=== PATIENT | female | born 1955 | race Caucasian/White ===

== ENCOUNTER → 2016-05-08 | Outpatient (CLI) | payer BC | END | disposition home or self-care (01) | LOC: LAB 07:14 | DX: R73.9 Hyperglycemia, unspecified (principal); M25.551 Pain in right hip ==

== ENCOUNTER → 2017-08-25 | Outpatient (CLI) | payer OTHER ==
[2017-08-25 14:11] LABS: CREATININE 0.69 mg/dL (0.55-1.02)
== END | disposition home or self-care (01) ==
LOC: CT 08-20 11:00 → LAB 13:32 → CT 14:00
PROVIDERS: Radiology Diagnostic Radiology
DX: K57.30 Diverticulosis of large intestine without perforation or abscess without bleeding (principal); K63.9 Disease of intestine, unspecified

== ENCOUNTER 2019-03-09 12:09 | Inpatient (IN) | payer OTHER ==
[~2019-03-09] VITALS: Ht 160 cm; Wt 73.0 kg
--- NOTE | ~2019-03-09 | PR ---
[place], [place] PROGRESS NOTE NAME: SUELLEN SANDOVAL UNIT #: [id number] ROOM: [facility] DOCTOR: ISMAEL LÓPEZ MD BIRTHDATE: [birth year] DOS: 03/11/2019 SUBJECTIVE: The patient is doing about the same, continues to have spike of fever during the night, she is up on the libertarian chair this morning when I saw her. She denied having any new complaints. She hallucinated in spite fever during the night. OBJECTIVE: VITAL SIGNS: Blood pressure is 105/56, pulse of 91, respirations 16, temperature 99.3 with T-max of 102.1 at midnight. LUNGS: Diminished breath sounds. HEART: Regular. ABDOMEN: Obese. EXTREMITIES: Without any edema. ASSESSMENT AND PLAN: 1. Sepsis with hypotension, hypoxemia and gram-positive cocci in the blood, on IV vancomycin and meropenem. 2. Possibility of abscess in the piriformis and iliopsoas muscle. I did try to appreciate ID input. Did try to transfer the patient first to [facility], there did not have any beds in either of their facilities and then I try to transfer to [facility]. They not have any beds either. They at least put the patient on a list. This morning I am hearing her insurance will not cover any [facility] and she will have to go to [facility]. We will try to contact [facility] again. 3. Iron deficiency anemia, infusions have been ordered. 4. Recent back surgery, laminectomy of L3, L4 and L5 and I also did speak to Dr. De La Torre her surgeon twice yesterday trying to see whether he would have any suggestions. He just wanted me to transfer the patient to medical floor. ISMAEL LÓPEZ MD CM:PNTRANS 1 9 ISMAEL LÓPEZ MD 03/21/1936 interface
--- NOTE | ~2019-03-09 | CON ---
[place], [place] REPORT OF CONSULTATION NAME: SUELLEN SANDOVAL UNIT #: [id number] ROOM: [facility] DOCTOR: ABRAN HUITRON MD BIRTHDATE: [birth year] DOS: 03/11/2019 ATTENDING: Dr. Sutton. CONSULTING: Haris Huitron. WHAT: Fever, hip pain. HOW: Insidious. WHEN: Over the last week. WHERE: At home. HISTORY OF PRESENT ILLNESS: This is a 63-year-old female with major lumbar surgery around 01/25/2019 in [place], [place]. She had a multilevel lumbar fusion. She did well and graduated from her rehab facility in early 02/2019. She was at home thereafter and just 5-7 days ago developed difficulty with ambulation as well as low grade fever. The patient has not had significant problems with her wound from the lumbar spine surgery. She has been admitted here in [place] to the ICU on Thursday03/09/2019. Initial vital signs Thursday evening did show temperature to 102.8 degrees Fahrenheit. CAT scan was performed yesterday, which showed a possible abscess in the iliopsoas. MEDICATIONS: Cyclobenzaprine, oxycodone, Zyrtec, vitamin D3, stool softener, Xanax. The patient was specifically queried about anticoagulants and states that she drinks green tea but has not been on any other anticoagulant. ALLERGIES: SOME TYPE OF RADIOLOGIC CONTRAST MATERIAL - IOVERSOL, ACETAMINOPHEN, CODEINE. PAST MEDICAL HISTORY: Noncontributory. SOCIAL HISTORY: The patient lives with her and otherwise noncontributory. SURGICAL HISTORY: Positive for the lumbar spine surgery but otherwise not felt to be contributing to this problem. FAMILY HISTORY: No history of hemophilia or other bleeding or clotting disorders. REVIEW OF SYSTEMS: A 10-point review of systems is negative from an orthopedic standpoint. PHYSICAL EXAMINATION: VITAL SIGNS: T-max over the last 24 hours 102.2 degrees Fahrenheit yesterday afternoon at 4:00 p.m. Otherwise, her vital signs have been stable with mild tachycardia. ABDOMEN/TRUNK: The patient does have right flank tenderness compared to the [place], [place] REPORT OF CONSULTATION NAME: SUELLEN SANDOVAL UNIT #: [id number] ROOM: [facility] DOCTOR: ELANA MARES,ABRAN BIRTHDATE: [birth year] left flank tenderness. She has difficulty with full extension of the hip when her bed is lowered to a full horizontal position. She is able to flex the hip but with pain. Hip range of motion does cause pain in the groin region. Neurovascular status is intact. Abdomen is soft and nontender. Inspection of lower spine: The wound from her prior back surgery was inspected and shows no evidence of wound breakdown, erythema, swelling or drainage. LABORATORY DATA: Show white count has dropped to 6500 with normal platelet count. Hemoglobin is low at 7.8 and hematocrit 25.9, which is a drop. Neutrophil percentage is high at 83%. IMAGING: CT scan was reviewed and shows iliopsoas on the right is approximately 3-4 times larger than the left iliopsoas suggestive of either hematoma or abscess. IMPRESSION: I recommend the patient have consideration of either General Surgery consultation or interventional radiologist consultation for placement of percutaneous drain or exploration via General Surgery. This patient's problem is in the retroperitoneum and is beyond the scope of our practice in [place] in the orthopedic clinic/service. Consideration of transfer to a larger facility may also be reasonable. If she is transferred, I will consider sending her back to [place], where she had the spine surgery as this may be a postoperative complication of some sort. ABRAN HUITRON MD CM:CONSTR:REPORT OF CONSULTATION 0909 03/11/19 1005 interface
--- NOTE | ~2019-03-09 | CON ---
[place], [place] REPORT OF CONSULTATION [id number] UNIT #: [id number] ROOM: [facility] DOCTOR: DEMETRI DEJESUS MD BIRTHDATE: [birth year] DOS: 03/11/2019 PULMONARY CONSULTATION, EVALUATION, AND MANAGEMENT REASON FOR CONSULTATION: Assess the patient for current shortness of breath and hypoxia. HISTORY OF PRESENT ILLNESS: This is a 63-year-old white female patient who has been admitted to the hospital under care of the hospitalist services on the date of 03/06/2019. The patient stated that she had developed pain, which has been described in the groin and the lateral portion of the abdomen on the right side. The pain has been noted gradually worsening. She was also noticed severe general weakness and fatigue resulting in assessment in the Emergency Room. The patient underwent several testing in the Emergency Room including x-ray of the hip, CT scan of abdomen and pelvis, and CT scan of the head. She has been now reported with collection in the retroperitoneal area where there is abnormal bleeding, collection of any infection such as pus or fluid was suspected. She has been admitted to the Intensive Care Unit for further medical management. Blood culture, which was taken in the Emergency Room has been noted gram-positive cocci in pairs and clusters. The patient has been currently getting broad spectrum intravenous antibiotic including vancomycin. The patient's pain has been noted better this morning. She has been using oxygen supplementation intermittently and also noted with nonproductive cough, which has been noted severe at times, resulting in pain in the chest and abdomen because of nonproductive cough. REVIEW OF SYSTEMS: CONSTITUTIONAL SYMPTOMS: Fatigue and tiredness noted without any symptoms of fever or chills. EYES: Denies any burning, redness, or tenderness. EARS, NOSE, THROAT SYMPTOMS: No sore throat, hoarseness, otalgia, postnasal drainage, or epistaxis. CARDIOVASCULAR: Denies angina pain, edema, and pain of the lower extremities. GASTROINTESTINAL SYMPTOMS: Denies dysphagia, nausea, vomiting, diarrhea, and abdominal pain at the present time. The pain in the back and the groin was noted better. GENITOURINARY SYMPTOMS: No dysuria, suprapubic pain, or hematuria. MUSCULOSKELETAL: No acute joint pain, redness, or tenderness. SKIN: Reported no lesions or rashes. CENTRAL NERVOUS SYSTEM: The patient denies dizziness, headache, diplopia, or syncopal episodes. Remaining systems were reviewed with the patient, they were noted all negative. PAST MEDICAL HISTORY: Noted history of longstanding bronchial asthma treated with Advair and short-acting bronchodilators. PAST SURGICAL HISTORY: Noted with lower back surgery in the past several years ago. [place], [place] REPORT OF CONSULTATION NAME: SUELLEN SANDOVAL UNIT #: [id number] ROOM: [facility] DOCTOR: DEMETRI DEJESUS MD BIRTHDATE: [birth year] SOCIAL HISTORY: The patient is and lives at home, noted nonsmoker lifetime. No history of alcohol use or any illicit drug use stated. FAMILY HISTORY: Essentially unknown. CURRENT MEDICATIONS: Administered was noted as DuoNeb, D5 half normal saline, IV meropenem, and IV vancomycin. The patient was given Levophed yesterday, which has been titrated off for this patient as improvement in the hypertension noted. DRUG ALLERGIES: ALLERGIES TO THE IVP DYE AND CODEINE PHOSPHATE. PHYSICAL EXAMINATION: GENERAL: This is a 63-year-old female patient who has been currently noted to be awake and alert, without any acute distress this morning. Comfortably resting on the bed. VITAL SIGNS: For the patient, which were recorded on current admission with height of 5 feet 3 inches, weight 161 pounds, BMI 28.5. The patient was noted temperature of 102 degrees Fahrenheit, respiratory rate was noted 33 yesterday, currently noted 16 this morning. Heart rate ranged between 91-107, mild sinus tachycardia, blood pressure 119/68-124/53 recorded. Previous blood pressure yesterday on admission, the lowest blood pressure was 76/45 on admission. HEENT: Head is atraumatic. Eyes: nonicterus. NECK: Supple. CARDIOVASCULAR: S1, S2 audible. LUNGS: Noted clear of any wheezing or crackles. ABDOMEN: Noted soft, moderate obesity. Bowel sounds present without any tenderness anteriorly. EXTREMITIES: Without edema, clubbing, or cyanosis. MUSCULOSKELETAL: Without acute deformities. CENTRAL NERVOUS SYSTEM: Grossly intact. LABORATORY DATA: Intake was noted 3.790 liters, output was 5074 mL, negative 1914 mL recorded. Pulse oxygen saturation is normal on room air, later on 50% oxygen 99%. This morning on 2 liters nasal cannula 97% saturation. Reviewed on admission, the CBC that was done yesterday as WBC count 9.2, hemoglobin 8.3, platelet count was normal. PT/PTT was done yesterday is normal. Lactic acid yesterday was 0.9. The CMP, normal BUN and creatinine, sodium 127, potassium 3.1. LFTs, albumin 2.7, otherwise normal LFTs. CBC that was done on 03/11/2019, hemoglobin 7.8, hematocrit 25.9, and platelet count normal. Blood culture gram-positive cocci in cluster noted from admission in 3/4 bottles. Blood culture, which were taken on 03/10/2019 noted gram-positive cocci in pairs and clusters. The review of the radiology data. The chest x-ray that was done on admission, 1 view was reviewed, shows mild widening of the mediastinum with basilar areas of atelectasis, otherwise negative study. CT scan of the head on 03/09/2019 reported as no acute intracranial abnormalities. Right hip x-ray was also done reported by radiologist, no acute process. CT scan of cervical spine does not show any displacement or any fractures. CT scan of the abdomen and pelvis that was done without contrast on 03/09/2019 with findings by the [place], [place] REPORT OF CONSULTATION NAME: SUELLEN SANDOVAL UNIT #: [id number] ROOM: [facility] DOCTOR: TILA DUBOIS [facility] BIRTHDATE: [birth year] radiologist as artifact for extensive thoracolumbar fusion was reported. Mild asymmetrical enlargement right iliac muscle compared to the left side, stranding of the fat also reported in the right common femoral and external iliac in the vessels. Finding may be related to small infiltrate, retroperitoneal hematoma, short-term followup was advised. The CTA of the chest was done yesterday which were repeated and that has excluded any evidence of pulmonary embolism as reviewed, the patient was given a prep prior to that. The CT scan of the abdomen was also done at that time was noted with finding of 6 x 4.2 x 2.8 cm with focal abscess formation was suggested. It could be from retroperitoneal hematoma at the suggestion. IMPRESSION: 1. The patient has been noted, most likely is the bacteremia for acute sepsis, hypertension and shortness of breath and hypoxia related to current abscess formation in the back, etiology unclear, but noted Gram-positive cocci bacteremia in pairs and clusters in multiple since admission. 2. History of bronchial asthma noted with cough possibility of bronchitis would be considered as well. 3. The patient has history of morbid obesity as well. There were no past history of tobacco use. There were no abnormal lymphadenopathy noted. A small pleural fluid noted on CT scan of the chest most likely would be related to possibly intravenous fluid administration, resulting in the fluid overload. PLAN OF MANAGEMENT: Continue with the aggressive coverage with the antibiotics, oxygen supplementation, maintain pulse ox 92% or greater, avoid excessive fluid administration. Intravenous Lasix will be given in case of worsening of the respiratory status. Bronchodilators to be continued. The patient has been currently considered for transfer to [facility] in [place], [place] for further assessment intervention of current problem. CT-guided drainage should be considered for an abscess and other intervention to be done accordingly. Possibility of placement of the pigtail catheter in that area of draining abscess should be considered as well. Symptomatic management of the cough with the bronchodilator will be continued. In case of any worsening respiratory status. Additional intervention will be done to transfer to another facility. Usual care. Supportive care, plan of therapy management as well. The ultrasound of lower extremity that was ordered yesterday, has also included any deep venous thrombosis of lower extremities from yesterday. Thanks for allowing me to participate in the care of this patient. [place], [place] REPORT OF CONSULTATION NAME: SUELLEN SANDOVAL UNIT #: [id number] ROOM: [facility] DOCTOR: DEMETRI DEJESUS MD BIRTHDATE: [birth year] DEMETRI ADORNO MD CM:CONSTR:REPORT OF CONSULTATION 16 03/11/191958 interface
--- NOTE | ~2019-03-09 | EKG ---
[place], [place] ELECTROCARDIOGRAM REPORT NAME: SUELLEN SANDOVAL UNIT #: [id number] ROOM: [facility] DOCTOR: JARETH DRAFT REPORT BIRTHDATE: [birth year] [facility] Test Date: 2019-03-09 Test Time: 12:36:42 Pat Name: SUELLEN SANDOVAL Department: Room: [facility] Gender: F Chucking Lathe Operator: : 1955 Requested By: JAMIE VARGAS DNP Order Number: [id number] Reading MD: Yola Martinez Measurements Intervals [place] Rate: P: CT: QRS: QRSD: T: QT: QTc: 0 Interpretive Statements Sinus rhythm No previous ECG available for comparison Electronically Signed On 03-11-2019 7:37:09 PST by Yola Martinez CM:EKGRPT:ELECTROCARDIOGRAM REPORT [id number] JAMIE MERAZANY DRAFT REPORT JAMIE VARGAS DNP
--- NOTE | ~2019-03-09 | WRIGHTHP ---
[place], [place] PATIENT HISTORY AND PHYSICAL EXAM NAME: SUELLEN SANDOVAL [facility] #: [id number] UNIT #: [id number] ROOM: [facility] DOCTOR: ISMAEL LÓPEZ MD BIRTHDATE: [birth year] DOS: 03/09/2019 HISTORY OF PRESENT ILLNESS: This patient is 63-year-old. The patient is very well known to us. She had laminectomy performed 2 months ago and has been doing well, walking and not having any new complaints. About few days ago, she noticed increasing weakness in her legs and was unable to ambulate and she started having a fever, so she went to [facility], got admitted overnight last Thursday. Blood work and testing were all done, so they were told that there was nothing wrong and that she just was discharged to home. On Thursday, the family came to the office with a urine specimen, which was slightly positive. Bactrim was ordered. On Thursday, the patient's daughter called that the patient was starting to have a high-grade temperature of 103. She was confused and was unable to get up out of bed, so advised the patient be sent by ambulance to the Emergency Room where she was evaluated and was admitted. She this morning is slightly confused, but recognized me and did answer questions appropriately. Some of the chain of events are mixed up for the patient. Denies having any chest pains, palpitations. Does complain of severe abdominal pain. Holds on to the right lower quadrant when she coughs. PAST MEDICAL HISTORY: Significant for: 1. Again, recent back surgery status post laminectomy. 2. Generalized anxiety disorder. 3. Chronic allergic rhinitis. MEDICATIONS: She is on Zyrtec 10 mg daily p.r.n., Xanax 0.5 daily p.r.n. She also has been on cyclobenzaprine and oxycodone. SOCIAL HISTORY: Nonsmoker, does not use any alcohol. Lives at home with her boyfriend. PHYSICAL EXAMINATION: GENERAL: She is awake and alert and oriented to person. VITAL SIGNS: Graphic trend shows a pressure 103/54, pulse of 88, respirations 22, temperature 98.7. LUNGS: Diminished breath sounds. Clear. HEART: Regular. ABDOMEN: Obese, soft. Some tenderness is present in the right lower quadrant. EXTREMITIES: Without any edema. BACK: Within normal limits. The area is warm and dry. Wound is completely closed. NEUROLOGICAL: There is weakness bilaterally in the lower legs. Blood cultures were positive. Two bottles were positive, Gram-positive cocci in clusters. LABORATORY DATA: Lactic acid was normal. White cell count was normal. Urinalysis reflexed for culture, so far it is showing no bacterial growth. CT of the abdomen and pelvis shows a possibility of retroperitoneal hematoma with some infiltration in the fat planes suggestive of maybe a localized infection. ASSESSMENT AND PLAN: [place], [place] PATIENT HISTORY AND PHYSICAL EXAM NAME: SUELLEN SANDOVAL UNIT #: [id number] ROOM: [facility] DOCTOR: ISMAEL LÓPEZ MD BIRTHDATE: [birth year] 1. The patient with high-grade fever and confusion and septic with positive blood cultures and hypotension. The patient was started on Levophed during the night. IV fluids and IV antibiotics. Broad spectrum antibiotics have been added. Infectious Disease consultation is pending. 2. Polypharmacy. We will avoid Flexeril, Xanax and pain medication combination. Oxycodone has been ordered. Rest of the pain medicines, muscle relaxants and Xanax have been discontinued. 3. Possibility of a mass, right lower quadrant of the abdomen could be an abscess. We will go ahead and arrange for a WBC tagged scan. 4. Hypokalemia. Supplementation is ordered. 5. Anemia with a hemoglobin of 7.8. This is a new finding for the patient. Hemoccults will be ordered. Iron, B12, folate, ferritin also ordered. ISMAEL LÓPEZ MD CM:HISPHYS:PATIENT HISTORY AND PHYSICAL EXAMINATION 5 ISMAEL LÓPEZ MD 03/10/19854 interface
[2019-03-09 12:10] VITALS: BP 123/49
[2019-03-09 12:45] LABS: BILIRUBIN NEGATIVE (NEGATIVE); BLOOD TRACE-INTACT (NEGATIVE); CLARITY CLEAR (CLEAR); COLOR YELLOW (YELLOW); GLUCOSE NEGATIVE (NEGATIVE); KETONE NEGATIVE (NEGATIVE); LEUKO ESTERASE NEGATIVE (NEGATIVE); NITRITE NEGATIVE (NEGATIVE); SPECIFIC GRAVITY 1.015 (1.005-1.030); UROBILINOGEN 0.2 E.U./dl (0.2-1.0)
[2019-03-09 12:51] LABS: BACTERIA 2+
[2019-03-09 12:55] LABS: HEMATOCRIT 26.6 % (37.0-47.0); HEMOGLOBIN 8.3 g/dl (12.0-16.0); MEAN CELL VOLUME 81.1 fl (81.0-99.0); MEAN CORPUSCULAR HGB 25.3 pg (27.0-31.0); MEAN CORPUSCULAR HGB CONC 31.2 g/dl (33.0-37.0); MEAN PLATELET VOLUME 9.7 fl (9.6-12.3); PLATELET COUNT AUTOMATED 229 10*3/uL (130-400); RED BLOOD COUNT 3.28 10*6/uL (4.10-5.10); WHITE BLOOD COUNT 9.2 10*3/uL (4.8-10.8)
[2019-03-09 12:59] LABS: ACT PARTIAL THROMBO TIME 28.2 SECONDS (20.0-32.1)
[2019-03-09 13:05] LABS: ALBUMIN 2.7 gm/dl (3.1-4.5); ALKALINE PHOSPHATASE 119 U/L (45-117); BUN 10 mg/dl (7-24); CHLORIDE 93 mmol/L (98-107); CREATININE 0.85 mg/dL (0.55-1.02); LIPASE 75 U/L (73-393); POTASSIUM 3.1 mmol/L (3.5-5.1); SGOT/AST 28 IU/L (3-35); SODIUM 127 mmol/L (136-145); TOTAL PROTEIN 6.9 gm/dL (6.4-8.2)
[2019-03-09 13:07] LABS: BASOPHILS 1 % (0-1); PLATELET SUFFICIENCY NORMAL (NORMAL); SGPT/ALT 30 U/L (12-78); TOTAL CELLS COUNTED 100 #CELLS
[2019-03-09 13:08] LABS: TROPONIN I < 0.015 ng/ml (<0.045)
--- NOTE | 2019-03-09 13:19 | NUR ---
PT TO CT AT THIS TIME.
[2019-03-09 14:58] VITALS: BP 128/68
--- NOTE | 2019-03-09 15:10 | NUR ---
Time: 1509 A 63 year old FEMALE admitted to under services of DR. PUSHPA MARES,YELENA Mccrary Pt. arrived via bed from ER. Chief complaint: .UTI SYMPTOMS HRUBOVCAKRAJ
[2019-03-09] MEDS ORDERED: CYCLOBENZAPRINE5 M3 PO (16:43)
[2019-03-09] MEDS ORDERED: OXYCODONE HCL5 M1 PO (16:44)
[2019-03-09] MEDS ORDERED: ZYRTEC10 MG PO (16:44)
[2019-03-09] MEDS ORDERED: XANAX0.5 MG PO (16:45)
[2019-03-09] MEDS ORDERED: VITAMIN D50000 UNIT PO (16:45)
[2019-03-09] MEDS ORDERED: STOOL SOFTENER100 M3 PO (16:45)
[2019-03-09] MEDS ORDERED: INHALER (16:47)
--- NOTE | 2019-03-09 16:50 | NUR ---
C/O PAIN OF 10/10 TO BACK. IV DILAUDID GIVEN AT THIS TIME. WILL CONT TO MONITOR. CALL LIGHT IN REACH.
--- NOTE | 2019-03-09 17:09 | NUR ---
SPOKE TO DR BARROW. NEW ORDERS RECEIVED AND HE STATED HE WILL PUT THE REST OF THEM IN.
--- NOTE | 2019-03-09 17:30 | NUR ---
DR BARROW NOTIFIED PT C/O INABILITY TO URINATE. RECEIVED NEW ORDERS FOR PT TO BE STRAIGHT CATHED AND RECORD OUTPUT. PLEASE SEE ORDERS
--- NOTE | 2019-03-09 17:52 | NUR ---
MOTRIN GIVEN FOR TEMP OF 102.8
--- NOTE | 2019-03-09 19:50 | NUR ---
NOTIFIED DR. BARROW OF PATIENTS NEW BLOOD PRESSURE, 82/44. PATIENT CONTINUING TO COMPLAIN OF ABDOMINAL PAIN AND FLANK PAIN. C/O FEELING LIGHT HEADED. SEE NEW ORDERS. .
[2019-03-09 20:00] VITALS: BP 76/45; BP 82/44
[2019-03-09 21:21] VITALS: BP 82/32
--- NOTE | 2019-03-09 21:24 | NUR ---
NOTIFIED DR. TREVINO OF NEW CONSULT. NO NEW ORDERS RECEIVED. ATTEMPTED TO CALL DR. BARROW WITH PATIENT NEW BLOOD PRESSURE. NO ANSWER. WILL RETRY.
--- NOTE | 2019-03-09 21:35 | NUR ---
DR. BARROW CALLED BACK. ANOTHER BOLUS TO BE GIVEN THEN FLUIDS AT 100ML/HR. PER DR. BARROW PLACE CALVO FOR ACCURATE I&O. CALL DR. BARROW AFTER BOLUS COMPLETE IF SYSTOLIC BLOOD PRESSURE <100. WILL CONTINUE TO MONITOR.
--- NOTE | 2019-03-09 23:20 | NUR ---
NOTIFIED DR. BARROW OF PATIENT PRESSURE, 74/38. AFTER 2BOLUSS. IV FLUIDS NOW RUNNING AT 100ML/HR. 800CC OUT OF CALVO. PER DR. BARROW CONSULT DR. NGUYEN FOR FLUID MANAGMENT AND TRANSFER PATIENT TO THE ICU. AUXILIARY POWER EQUIPMENT OPERATOR NOTIFIED OF TRANSFER.
--- NOTE | 2019-03-09 23:32 | NUR ---
PATIENT TRANSFERED BACK TO THE ICU AT THIS TIME. REPORT GIVEN TO SOHAIL TELLES. DAUGHTER NOTIFIED OF TRANSFER.
--- NOTE | 2019-03-09 23:32 | NUR ---
RECEIVED PATIENT FROM FLOOR, PATIENT ALERT AND ORIENTED. BP 86/52(63). IVF RUNNING. PATIENT DENIES ANY PAIN AT THIS TIME. CALVO EMPTIED, 750ML. CONTACTED DR. BARROW, NEW ORDER TO CONSULT DR. HARDEN. NO OTHER ORDERS RECEIVED.
--- NOTE | 2019-03-09 23:57 | NUR ---
CALLED DR. NGUYEN FOR NEW CONSULT. PER HER,DR. HARDEN IS COVERING FOR HER SERVICE. NOTIFIED DR. BARROW. DR. HARDEN TO BE CONSULTED FOR FLUID MANAGEMENT.
[2019-03-10] VITALS (41 sets, daily range): BP systolic 82–154; BP diastolic 46–122
--- NOTE | 2019-03-10 00:03 | NUR ---
CONTACTED DR. HARDEN'S OFFICE FOR CONSULT. AWAITING CALL BACK.
--- NOTE | 2019-03-10 00:30 | NUR ---
RECEIVED ORDERS FROM DR. HARDEN. KEEP IVF @ 100/HR, ALBUMIN 5% 500ML, LEVOPHED.
--- NOTE | 2019-03-10 02:00 | NUR ---
CONTACTED DR. HARDEN'S OFFICE TO LET HIM KNOW WE WERE UNABLE TO GET ALBUMIN 5% AWAITING CALL BACK.
--- NOTE | 2019-03-10 02:30 | NUR ---
NOTIFIED DR. HARDEN'S OFFICE AGAIN, SINCE THERE WAS NO CALL BACK. WILL AWAIT CALL.
--- NOTE | 2019-03-10 03:05 | NUR ---
STILL NO CALL BACK FROM DR. HARDEN. ALBUMIN ORDER WILL HAVE TO BE CARRIED OUT WHEN PHARMACY ARRIVES IN THE AM.
[2019-03-10 04:55] LABS: BUN 8 mg/dl (7-24); CHLORIDE 108 mmol/L (98-107); CREATININE 0.64 mg/dL (0.55-1.02); POTASSIUM 3.2 mmol/L (3.5-5.1); SODIUM 137 mmol/L (136-145)
--- NOTE | 2019-03-10 05:00 | NUR ---
PATIENT ASKED IF SHE COULD HAVE SOMETHING FOR PAIN IN HER BACK. SHE RATES 10/10. MORPHINE GIVEN, WILL MONITOR AND REASSESS.
--- NOTE | 2019-03-10 05:00 | NUR ---
POSITIVE BLOOD CULTURES CALLED TO DR. BARROW, NEW ORDER FOR VANCO AND I/D CONSULT.
--- NOTE | 2019-03-10 05:08 | NUR ---
CONSULT CALLED TO DR. KIRKLAND, AWAITING CALL BACK.
--- NOTE | 2019-03-10 05:17 | NUR ---
DR. GAITAN RETURNED CALL, NO NEW ORDERS.
[2019-03-10 06:20] LABS: BASO % 0.2 % (0.0-1.0); EOS % 0.6 % (1.0-4.0); HEMATOCRIT 25.9 % (37.0-47.0); HEMOGLOBIN 7.8 g/dl (12.0-16.0); LYMPH # 0.5 10*3/uL (1.3-4.4); LYMPH % 7.2 % (27.0-41.0); MEAN CORPUSCULAR HGB CONC 30.1 g/dl (33.0-37.0); MEAN PLATELET VOLUME 10.9 fl (9.6-12.3); MONO # 0.5 10*3/uL (0.1-1.0); MONO % 8.3 % (3.0-9.0); NEUT # 5.5 10*3/uL (2.3-7.9); NEUT % 83.2 % (47.0-73.0); PLATELET COUNT AUTOMATED 218 10*3/uL (130-400); RED BLOOD COUNT 3.12 10*6/uL (4.10-5.10); RED CELL DISTRI WIDTH 15.2 % (0-14.5); WHITE BLOOD COUNT 6.5 10*3/uL (4.8-10.8)
--- NOTE | 2019-03-10 07:45 | NUR ---
DR. LÓPEZ HERE TO SEE PATIENT. PATIENT IS AWAKE AND ALERT. RESTLESS. TEMP 100.5. LEVOPHED GTT INFUSING AT 1 ROBERT (7.5CC/HR) VIA RAN. IV IN NARCISO OUT AND LEAKING. IV RESTARTED IN NARCISO AND NS INFUSING AT 100CC/H. CALVO INTACT AND DRAINING CLEAR YELLOW URINE. LUNGS CLEAR BILATERALLY. NO EDEMA NOTED. PULSE OX 96% ON ROOM AIR
--- NOTE | 2019-03-10 10:00 | NUR ---
MAP 72. LEVOPHED GTT TURNED OFF.
--- NOTE | 2019-03-10 10:00 | NUR ---
Internet Manager in to talk to patient. Patient states lives at home with her ex-. There are 0 steps in the home. There is a stair lift. Physician: Dr. Rehana Sutton Pharmacy: [facility] services: none Patient's level of ADLs: MINIMAL ASSIST Patient has working utilities: yes DME: walker Follow-up physician's appointment after d/c: she prefers to make her own follow up appt after discharge Does patient want to access PORTAL?: no Discharge plan discussed with patient. She lives at home with her ex-. She is independent in her ADLs and ambulates with a walker. Discussed short term SNF and home health care services and she denies any home needs at this time. When medically stable she will be discharged to home. Her ex- will provide transportation on discharge. MARCOS CHANG
--- NOTE | 2019-03-10 10:25 | NUR ---
MEDICATED WITH OXYCODONE PO ORDERED FOR COMPLAINTS OF PAIN IN BACK. RATES PAIN AN 8 ON A PAIN SCALE OF 1-10
[2019-03-10 10:27] LABS: FERRITIN 143.3 ng/mL (10.0-291.0)
--- NOTE | 2019-03-10 11:00 | NUR ---
VOICES THAT OXYCODONE WAS EFFECTIVE FOR PAIN
--- NOTE | 2019-03-10 13:56 | NUR ---
NOTIFIED DR. LÓPEZ REGARDING HARSH COUGH AND SHORTNESS OF BREATH, PULSE OX 94% ON ROOM AIR. ABG ORDERED AND DUONEBS ORDERED Q4H
[2019-03-10 14:24] LABS: ABG BASE EXCESS -1.3 mmol/L (-2.0-2.0); ABG HCO3 21.6 mmol/l (22-26); ABG O2 SATURATION 94.7 % (95-97); ARTERIAL BLOOD GAS PCO2 32.6 mmHg (35-45); ARTERIAL BLOOD GAS PH 7.443 (7.35-7.45); ARTERIAL BLOOD GAS PO2 65.3 mmHg (80-90)
--- NOTE | 2019-03-10 15:38 | NUR ---
DR. LÓPEZ NOTIFIED OF ABG RESULTS AND CONTINUED RESPIRATORY DISTRESS WITH RESPIRATIONS IN THE 30'S. ORDERS RECEIVED FOR BI-PAP 04/08; CTA CHEST AND A DR. ADORNO CONSULT
--- NOTE | 2019-03-10 16:09 | NUR ---
MEDICATED WITH 2 TYLENOL FOPR TEMP 102.2
--- NOTE | 2019-03-10 16:28 | NUR ---
Nursing screen received and chart review completed. Patient admitted with fever, confusion and positive blood cultures afater laminectomy 2 months prior. Patient reports to case management that she is independent in her ADls and will return home with family upon d/c. Patient has not current OT needs per chart review. Nola Lindsey OTr/l
--- NOTE | 2019-03-10 16:30 | NUR ---
TAKEN DOWN TO X-RAY FOR CT CHEST AND ABDOMEN
--- NOTE | 2019-03-10 18:40 | NUR ---
DR. PEACE NOTIFIED OF CT RESULTS. SHE WANTS PATIENT TO BE TRANSFERRED TO [facility]. DR. LÓPEZ CALLED AND A VOICE MESSAGE LEFT.
--- NOTE | 2019-03-10 19:50 | NUR ---
1919 OXY IR GIVEN FOR C/O'S R HIP PAIN. WILL MONITOR. 1929 UP TO BSC WITH 2 ASSISTS FOR BM LIGHT YELLOW LIQUID STOOL. REMAINS WEAK. BACK TO BED. 1946 DR. LÓPEZ RETURNED EARLIER CALL. GIVEN RESULTS OF CT ABD. TO CALL PT PHYSICIAN AT [facility] AND RETURN CALL TO ME REGARDING TRANSFER. 1949 RESTING IN BED TALKING WITH VISITORS. ORAL TEMP 98.1. IV FLUIDS CONT. TAKING DIET WELL PO. ALERT AT PRESENT. PULSE OX 98% ON RA. O2 REAPPLIED AT 2L. SCD'S INTACT BILATERAL LOWER EXTREMITIES. CALVO PATENT AND DRAINING CLEAR YELLOW URINE. 1957 RETURNED CALL. SURGEON WHO DID BACK OR WILL NOT ACCEPT PT. GIVEN [facility] TRANSFER NUMBER.
--- NOTE | 2019-03-10 20:37 | NUR ---
EARLIER PAIN MED EFFECTIVE. RESTING IN BED WITH EYES CLOSED.
--- NOTE | 2019-03-10 21:12 | NUR ---
SIGNIFICANT OTHER GONE HOME. GIVEN DIRECT NUMBER TO CALL ICU TO CHECK PT. [facility] CALLED US FOR DEMOGRAPHICS TO BE FAXED. STATES PT WILL NEED A PRE AUTHORIZATION DUE TO HER INSURANCE AND SINCE NO ONE FROM CASE MANAGEMENT IS HERE AT NIGHT, THIS CAN NOT BE DONE UNTIL MORNING.
--- NOTE | 2019-03-10 21:15 | NUR ---
LATE ENTRY 2100 DR. LÓPEZ CALLED BACK - NO BEDS AVAILABLE AT [facility] OR [facility]. GIVEN UPDATE ON PT.
--- NOTE | 2019-03-10 22:19 | NUR ---
RESTLESS AND MOVING ABOUT CONSTANTLY IN THE BED. ORIENTED TO PERSON AND PLACE. NO SPECIFIC COMPLAINTS VOICED.
--- NOTE | 2019-03-10 23:13 | NUR ---
REMAINS RESTLESS. HR ST AT 108. TEMP IS 102.6 TYMPANIC. TEMP IS 102.1 RECTALLY. HANDS ARE VERY COLD. MEDICATED WITH TYLENOL 2 PO FOR ELEVATED TEMP AND OXY IR FOR C/O'S PAIN HIP. PLACED ON BIPAP AT 50%. EAR PULSE OX PLACED. PULSE OX IS 100%. WILL CONT TO MONITOR.
[2019-03-11] VITALS: BP 124/76
--- NOTE | 2019-03-11 00:06 | NUR ---
LESS RESTLESSNESS NOTED. BIPAP INTACT. PULSE OX 98%. CONFUSED NOW. THINKS IT IS HALLOWEEN.
--- NOTE | 2019-03-11 00:44 | NUR ---
TEMP IS NOW 100.6 TYMPANIC. WILL CONT TO MONITOR.
--- NOTE | 2019-03-11 02:47 | NUR ---
BIPAP REMOVED. UP TO BSC. NO BM NOTED. TEMP IS NOW 99.3. COMPLETE BATH GIVEN AND LINENS CHANGED. BACK TO BED. CALL LIGHT IN REACH. PLACED BACK ON IL AT 3L. BED ALARM INTACT.
--- NOTE | 2019-03-11 03:18 | NUR ---
OXY IR GIVEN FOR C/O'S R HIP AND R ABDOMEN. WILL MONITOR.
[2019-03-11 04:00] VITALS: BP 105/56
--- NOTE | 2019-03-11 05:33 | NUR ---
NUCLEAR MED TECH HERE TO START TAGGED WBC TEST ON PT. MADE AWARE THAT PT IS TO BE TRANSFERRED OUT TO ANOTHER FACILITY TODAY. DR LÓPEZ CALLED REGARDING THIS TEST DUE TO THE FACT THAT IT WOULD NOT BE FINISHED UNTIL 2PM TODAY. UNSTRUCTED TO CANCEL TEST.
--- NOTE | 2019-03-11 06:08 | NUR ---
PT APPEARED MUCH MORE CONFUSED AFTER PAIN MED. HALLUCINATING. SEEING "KNIVES IN THE WALL." HR ELEVATED NOW AT 106. TEMP GOING UP AGAIN. UP TO 100.6. TYLENOL 2 PO GIVEN FOR THIS. REMAINS RESTLESS. HAS ONLY SLEPT FOR VERY SMALL PERIODS OF TIME. O2 INTACT AT 3L. WILL NOT LEAVE BIPAP ON. IV FLUIDS CONT. CALVO PATENT AND PT CONT TO DIURESE LARGE AMOUNTS OF URINE. DRY COUGH CONT. CONDITION GUARDED.
--- NOTE | 2019-03-11 07:39 | NUR ---
Message left for Christianne Salomon regarding possible transfer to [facility]. Checking to see if [facility] is in network and if not what facility would be as [facility] is an [place] Medicaid product. Awaiting return call.
--- NOTE | 2019-03-11 07:40 | NUR ---
DR. LÓPEZ HERE TO SEE PATIENT. WISHES TO SEND PATIENT TO [facility] OR [place]. TEMP98.4. BP 123/74. PULSE OX 99% ON ROOM AIR.
[2019-03-11 08:00] VITALS: BP 123/74
--- NOTE | 2019-03-11 08:06 | NUR ---
Spoke to Christianne Salomon. Patient has to stay within the state of [place]. [place] is out of network. rent and miscellaneous remittance clerk notified.
--- NOTE | 2019-03-11 08:22 | NUR ---
Spoke to bed coordinator at [facility]. She does not have any transfers on her list. Have physician call and 1st available bed will be called. Dr. Sutton notified.
--- NOTE | 2019-03-11 08:41 | NUR ---
[facility] OFFICE NOTIFIED OF CONSULT.
--- NOTE | 2019-03-11 10:20 | NUR ---
TRANSFERRED TO [facility] VIA [facility]. AT BEDSIDE. REPORT CALLED TO NURSE.
--- NOTE | 2019-03-14 18:24 | NUR ---
PHYSICAL THERAPY Physical therapy screen received. Patient discharged on 03/11/19. Thank you. Minnie Garcias,PT,DPT
== END 2019-03-11 10:20 | disposition short-term general hospital (02) | DRG 720 ==
LOC: ED 12:09 → ICCU 13:35 → EDHOLD 13:35 → 4E 14:02 → ICCU 23:40
PROVIDERS: Internal Medicine; Internal Medicine Critical Care Medicine; Nurse Practitioner Family; ADMIT Internal Medicine
PROC: 5A09357 Assistance with Respiratory Ventilation, Less than 24 Consecutive Hours, Continuous Positive Airway Pressure (ICD-10-PCS; principal; 2019-03-11)
DX: A41.89 Other specified sepsis (principal); G93.41 Metabolic encephalopathy; R26.2 Difficulty in walking, not elsewhere classified; L02.31 Cutaneous abscess of buttock; L02.419 Cutaneous abscess of limb, unspecified; D50.9 Iron deficiency anemia, unspecified; F41.1 Generalized anxiety disorder; I10 Essential (primary) hypertension; E66.01 Morbid (severe) obesity due to excess calories; E87.6 Hypokalemia; N30.00 Acute cystitis without hematuria; R10.9 Unspecified abdominal pain; E87.1 Hypo-osmolality and hyponatremia; B95.2 Enterococcus as the cause of diseases classified elsewhere; J45.909 Unspecified asthma, uncomplicated; R09.02 Hypoxemia; Z88.8 Allergy status to other drugs, medicaments and biological substances; Z88.5 Allergy status to narcotic agent; Z88.6 Allergy status to analgesic agent; Z91.041 Radiographic dye allergy status; Z68.28 Body mass index [BMI] 28.0-28.9, adult

== ENCOUNTER → 2019-06-03 | Outpatient (CLI) | payer MEDICARE ==
[~2019-06-03] MED LIST: CYCLOBENZAPRINE5 M3 PO; INHALER; OXYCODONE HCL5 M1 PO; STOOL SOFTENER100 M3 PO; VITAMIN D50000 UNIT PO; XANAX0.5 MG PO; ZYRTEC10 MG PO
== END | disposition home or self-care (01) ==
LOC: RAD 15:16
DX: R07.9 Chest pain, unspecified (principal)

== ENCOUNTER → 2020-03-08 | Outpatient (CLI) | payer MEDICARE ==
[2020-03-08 10:41] LABS: BASO % 0.4 % (0.0-1.0); EOS # 0.1 10*3/uL (0.0-0.4); EOS % 1.3 % (1.0-4.0); HEMATOCRIT 39.2 % (37.0-47.0); LYMPH # 1.9 10*3/uL (1.3-4.4); MEAN CELL VOLUME 86.9 fl (81.0-99.0); MEAN CORPUSCULAR HGB 26.8 pg (27.0-31.0); MEAN CORPUSCULAR HGB CONC 30.9 g/dl (33.0-37.0); MEAN PLATELET VOLUME 9.5 fl (9.6-12.3); MONO # 0.4 10*3/uL (0.1-1.0); MONO % 7.9 % (3.0-9.0); NEUT # 2.4 10*3/uL (2.3-7.9); PLATELET COUNT AUTOMATED 294 10*3/uL (130-400); RED BLOOD COUNT 4.51 10*6/uL (4.10-5.10); RED CELL DISTRI WIDTH 14.6 % (0-14.5); WHITE BLOOD COUNT 4.7 10*3/uL (4.8-10.8)
[2020-03-08 11:12] LABS: ALBUMIN 3.8 gm/dl (3.1-4.5); ALKALINE PHOSPHATASE 99 U/L (45-117); BUN 11 mg/dl (7-24); CHLORIDE 106 mmol/L (98-107); CHOLESTEROL 283 mg/dL (<200); CREATININE 0.82 mg/dL (0.55-1.02); FREE T4 0.73 ng/dl (0.76-1.46); HDL CHOLESTEROL 50 mg/dl (40-60); LDL CHOLESTEROL 158 mg/dL (9-159); POTASSIUM 4.1 mmol/L (3.5-5.1); SGOT/AST 19 IU/L (3-35); SGPT/ALT 26 U/L (12-78); SODIUM 142 mmol/L (136-145); TOTAL PROTEIN 7.5 gm/dL (6.4-8.2); TRIGLYCERIDES 373 mg/dl (<150); VLDL CHOLESTEROL 75 mg/dL (6-40)
[2020-03-08 11:19] LABS: VITAMIN D, 25-HYDROXY 22.6 ng/mL (30-100)
== END | disposition home or self-care (01) ==
LOC: LAB 09:59
PROVIDERS: ATTEND Internal Medicine
DX: M48.062 Spinal stenosis, lumbar region with neurogenic claudication (principal); E78.2 Mixed hyperlipidemia; R79.82 Elevated C-reactive protein (CRP); R74.8 Abnormal levels of other serum enzymes; R79.89 Other specified abnormal findings of blood chemistry; R53.81 Other malaise; E55.9 Vitamin D deficiency, unspecified; Z79.891 Long term (current) use of opiate analgesic

== ENCOUNTER → 2020-07-09 | Outpatient (CLI) | payer MEDICARE ==
[2020-07-09 14:38] LABS: BASO % 0.4 % (0.0-1.0); EOS # 0.1 10*3/uL (0.0-0.4); EOS % 1.1 % (1.0-4.0); HEMATOCRIT 36.5 % (37.0-47.0); LYMPH % 27.4 % (27.0-41.0); MEAN CELL VOLUME 89.9 fl (81.0-99.0); MEAN CORPUSCULAR HGB 27.6 pg (27.0-31.0); MEAN CORPUSCULAR HGB CONC 30.7 g/dl (33.0-37.0); MEAN PLATELET VOLUME 9.8 fl (9.6-12.3); MONO # 0.5 10*3/uL (0.1-1.0); NEUT # 4.6 10*3/uL (2.3-7.9); NEUT % 63.8 % (47.0-73.0); PLATELET COUNT AUTOMATED 293 10*3/uL (130-400); RED BLOOD COUNT 4.06 10*6/uL (4.10-5.10); RED CELL DISTRI WIDTH 14.6 % (0-14.5); WHITE BLOOD COUNT 7.2 10*3/uL (4.8-10.8)
== END | disposition home or self-care (01) ==
LOC: LAB 14:17
PROVIDERS: ATTEND Internal Medicine
DX: M54.5 Low back pain (principal); I10 Essential (primary) hypertension; T85.79XA Infection and inflammatory reaction due to other internal prosthetic devices, implants and grafts, initial encounter

== ENCOUNTER → 2020-09-19 | Outpatient (CLI) | payer MEDICARE | END | disposition home or self-care (01) | LOC: US 10:00 | PROVIDERS: ATTEND Internal Medicine | DX: I65.23 Occlusion and stenosis of bilateral carotid arteries (principal) ==

== ENCOUNTER → 2021-06-17 | Outpatient (CLI) | payer MEDICARE | END | disposition home or self-care (01) | LOC: RAD 09:00 | PROVIDERS: ATTEND Internal Medicine | DX: M85.88 Other specified disorders of bone density and structure, other site (principal); M81.0 Age-related osteoporosis without current pathological fracture ==

== ENCOUNTER → 2021-06-26 | Outpatient (CLI) | payer MEDICARE | LOC: MAMMO 11:27 | PROVIDERS: ATTEND Internal Medicine | DX: Z12.31 Encounter for screening mammogram for malignant neoplasm of breast (principal) ==

== ENCOUNTER → 2021-08-27 | Outpatient (CLI) | payer MEDICARE ==
[2021-08-27 12:53] LABS: BASO % 0.4 % (0.0-1.0); EOS # 0.1 10*3/uL (0.0-0.4); EOS % 1.1 % (1.0-4.0); HEMATOCRIT 37.5 % (37.0-47.0); LYMPH # 1.9 10*3/uL (1.3-4.4); LYMPH % 40.3 % (27.0-41.0); MEAN CELL VOLUME 87.6 fl (81.0-99.0); MEAN CORPUSCULAR HGB 28.5 pg (27.0-31.0); MEAN CORPUSCULAR HGB CONC 32.5 g/dl (33.0-37.0); MEAN PLATELET VOLUME 9.7 fl (9.6-12.3); MONO # 0.4 10*3/uL (0.1-1.0); MONO % 8.7 % (3.0-9.0); NEUT # 2.3 10*3/uL (2.3-7.9); NEUT % 49.3 % (47.0-73.0); PLATELET COUNT AUTOMATED 290 10*3/uL (130-400); RED BLOOD COUNT 4.28 10*6/uL (4.10-5.10); RED CELL DISTRI WIDTH 14.2 % (0-14.5); WHITE BLOOD COUNT 4.6 10*3/uL (4.8-10.8)
[2021-08-27 13:11] LABS: BUN 11 mg/dl (7-24); CHLORIDE 105 mmol/L (98-107); CHOLESTEROL 193 mg/dL (<200); CREATININE 0.81 mg/dL (0.55-1.02); POTASSIUM 4.3 mmol/L (3.5-5.1); SGOT/AST 17 IU/L (3-35); SGPT/ALT 22 U/L (12-78); SODIUM 137 mmol/L (136-145); TOTAL PROTEIN 7.6 gm/dL (6.4-8.2); TRIGLYCERIDES 300 mg/dl (<150)
[2021-08-27 13:17] LABS: ALKALINE PHOSPHATASE 84 U/L (45-117); FREE T4 0.86 ng/dl (0.76-1.46); LDL CHOLESTEROL 87 mg/dL (9-159)
[2021-08-27 13:36] LABS: VITAMIN D, 25-HYDROXY 15.3 ng/mL (30-100)
== END | disposition home or self-care (01) ==
LOC: LAB 12:23
PROVIDERS: ATTEND Internal Medicine
DX: Z13.21 Encounter for screening for nutritional disorder (principal); Z13.1 Encounter for screening for diabetes mellitus; I10 Essential (primary) hypertension; E78.2 Mixed hyperlipidemia; E55.9 Vitamin D deficiency, unspecified

== ENCOUNTER → 2021-09-17 | Outpatient (CLI) | payer MEDICARE ==
[~2021-09-17] VITALS: Ht 165.1 cm; Wt 72.6 kg
[~2021-09-17] MED LIST changes: +ARNUITY ELLIP100 MCG INH; +CELEBREX100 MG PO; +FLONASE ALLERG9.9 ML NAS; +LUBIPROSTONE8 MCG PO; +MIRTAZAPINE15 M1 PO; +PROPRANOLOL HCL40 M1 PO; +PROTONIX IV40 MG PO; +QVAR REDIHALE10.6 G1 INH; +SIMVASTATIN20 MG PO
[2021-09-17 10:46] VITALS: BP 119/88
== END | disposition home or self-care (01) ==
LOC: INJECTION 10:27
PROVIDERS: ATTEND Internal Medicine
DX: M81.0 Age-related osteoporosis without current pathological fracture (principal); J45.909 Unspecified asthma, uncomplicated; Z88.5 Allergy status to narcotic agent; Z98.890 Other specified postprocedural states

== ENCOUNTER → 2022-03-24 | Outpatient (CLI) | payer MEDICARE | END | disposition home or self-care (01) | LOC: MRI 09:00 | PROVIDERS: ATTEND Internal Medicine | DX: H53.8 Other visual disturbances (principal); R42 Dizziness and giddiness ==

== ENCOUNTER → 2022-04-16 | Outpatient (CLI) | payer MEDICARE | END | disposition home or self-care (01) | LOC: US 14:00 | PROVIDERS: ATTEND Internal Medicine | DX: I65.23 Occlusion and stenosis of bilateral carotid arteries (principal) ==

== ENCOUNTER → 2022-09-09 | Outpatient (CLI) | payer MEDICARE ==
[2022-09-09 09:30] VITALS: BP 142/58
== END | disposition home or self-care (01) ==
LOC: INJECTION 01:04
PROVIDERS: ATTEND Internal Medicine
DX: M81.0 Age-related osteoporosis without current pathological fracture (principal)

== ENCOUNTER → 2022-10-15 | Outpatient (CLI) | payer MEDICARE | END | disposition home or self-care (01) | LOC: US 00:52 | PROVIDERS: ATTEND Internal Medicine | DX: R10.84 Generalized abdominal pain (principal) ==

== ENCOUNTER → 2023-01-16 | Outpatient (CLI) | payer MEDICARE ==
[~2023-01-16] MED LIST changes: +DICYCLOMINE HYD10 MG PO; +DONEPEZIL HYDROC5 MG PO; +METHOCARBAMOL750 M1 PO; +NEURONTIN300 MG PO; +OXYCODONE-ACET1 EAC3 PO; +PROPRANOLOL HCL10 MG PO; +TRAMADOL HCL50 MG PO; +VIBRAMYCIN100 MG PO
== END | disposition home or self-care (01) ==
LOC: ORTHO 00:15
PROVIDERS: ATTEND Orthopaedic Surgery
DX: S82.431D Displaced oblique fracture of shaft of right fibula, subsequent encounter for closed fracture with routine healing (principal); S82.402D Unspecified fracture of shaft of left fibula, subsequent encounter for closed fracture with routine healing; S82.64XD Nondisplaced fracture of lateral malleolus of right fibula, subsequent encounter for closed fracture with routine healing; M79.89 Other specified soft tissue disorders

== ENCOUNTER 2023-01-18 12:27 | Emergency (ER) | payer MEDICARE ==
[~2023-01-18] VITALS: Ht 157.4 cm; Wt 77.1 kg
[2023-01-18 13:05] LABS: BASO % 0.2 % (0.0-1.0); EOS # 0.1 10*3/uL (0.0-0.4); HEMATOCRIT 32.2 % (37.0-47.0); LYMPH # 1.2 10*3/uL (1.3-4.4); LYMPH % 24.7 % (27.0-41.0); MEAN CELL VOLUME 91.2 fl (81.0-99.0); MEAN CORPUSCULAR HGB 28.9 pg (27.0-31.0); MEAN CORPUSCULAR HGB CONC 31.7 g/dl (33.0-37.0); MEAN PLATELET VOLUME 8.6 fl (9.6-12.3); MONO # 0.5 10*3/uL (0.1-1.0); MONO % 9.6 % (3.0-9.0); NEUT # 3.1 10*3/uL (2.3-7.9); NEUT % 64.3 % (47.0-73.0); PLATELET COUNT AUTOMATED 392 10*3/uL (130-400); RED BLOOD COUNT 3.53 10*6/uL (4.10-5.10); RED CELL DISTRI WIDTH 14.2 % (0-14.5); WHITE BLOOD COUNT 4.8 10*3/uL (4.8-10.8)
[2023-01-18 13:27] LABS: ALKALINE PHOSPHATASE 190 U/L (46-116); BUN 10 mg/dl (9-23); CHLORIDE 99 mmol/L (98-107); POTASSIUM 3.9 mmol/L (3.4-5.1); SGPT/ALT 20 U/L (10-49); TOTAL PROTEIN 7.1 gm/dL (6.0-8.0)
[2023-01-18 14:10] LABS: BILIRUBIN Negative (Negative); BLOOD Negative (Negative); CLARITY Clear (Clear); COLOR Yellow (Yellow); GLUCOSE Negative (Negative); KETONE Negative (Negative); LEUKO ESTERASE Negative (Negative); NITRITE Negative (Negative); SPECIFIC GRAVITY <= 1.005 (1.001-1.030); UROBILINOGEN 0.2 E.U./dl (0.0-1.0)
[2023-01-18 14:23] LABS: BACTERIA TRACE; WBC 0-2 wbc/hpf (0-5)
== END 2023-01-18 15:49 | disposition short-term general hospital (02) ==
LOC: ED 12:27
PROVIDERS: Student in an Organized Health Care Education/Training Program
DX: G83.4 Cauda equina syndrome (principal); J45.909 Unspecified asthma, uncomplicated; Z88.8 Allergy status to other drugs, medicaments and biological substances; Z88.5 Allergy status to narcotic agent; Z98.890 Other specified postprocedural states

== ENCOUNTER → 2023-02-06 | Outpatient (CLI) | payer MEDICARE | END | disposition home or self-care (01) | LOC: ORTHO 00:29 | PROVIDERS: ATTEND Orthopaedic Surgery | DX: S82.402D Unspecified fracture of shaft of left fibula, subsequent encounter for closed fracture with routine healing (principal); S82.64XD Nondisplaced fracture of lateral malleolus of right fibula, subsequent encounter for closed fracture with routine healing; X58.XXXD Exposure to other specified factors, subsequent encounter ==

== ENCOUNTER → 2023-04-10 | Outpatient (CLI) | payer MEDICARE | END | disposition home or self-care (01) | LOC: RAD 12:59 | PROVIDERS: ATTEND Orthopaedic Surgery | DX: M25.562 Pain in left knee (principal) ==

== ENCOUNTER → 2023-08-12 | Outpatient (CLI) | payer MEDICARE | END | disposition home or self-care (01) | LOC: ORTHO 00:24 → RAD 00:24 | PROVIDERS: ATTEND Orthopaedic Surgery | DX: S82.402D Unspecified fracture of shaft of left fibula, subsequent encounter for closed fracture with routine healing (principal); X58.XXXD Exposure to other specified factors, subsequent encounter ==

== ENCOUNTER → 2024-02-29 | Outpatient (CLI) | payer MEDICARE | END | disposition home or self-care (01) | LOC: RAD 10:00 | PROVIDERS: ATTEND Internal Medicine | DX: Z12.31 Encounter for screening mammogram for malignant neoplasm of breast (principal); M81.0 Age-related osteoporosis without current pathological fracture; Z78.0 Asymptomatic menopausal state ==

== ENCOUNTER → 2024-12-26 | Outpatient (CLI) | payer MEDICARE | LOC: LAB 16:55 | PROVIDERS: ATTEND Internal Medicine | DX: R70.0 Elevated erythrocyte sedimentation rate (principal); R79.82 Elevated C-reactive protein (CRP) ==

== ENCOUNTER → 2025-03-29 | Outpatient (CLI) | payer OTHER ==
[2025-03-29 14:34] LABS: BASO # 0.0 10*3/uL (0.0-0.1); BASO % 0.4 % (0.0-1.0); EOS # 0.0 10*3/uL (0.0-0.4); EOS % 0.8 % (1.0-4.0); MEAN CELL VOLUME 89.1 fl (81.0-99.0); MEAN CORPUSCULAR HGB 29.1 pg (27.0-31.0); MEAN PLATELET VOLUME 9.5 fl (9.6-12.3); MONO # 0.4 10*3/uL (0.1-1.0); MONO % 8.6 % (3.0-9.0); NEUT # 3.0 10*3/uL (2.3-7.9); NEUT % 58.6 % (47.0-73.0); NUCLEATED RED BLOOD CELL 0.0 % (0.0-0.0); NUCLEATED RED BLOOD CELL 0.0 10*3/uL (0.0-0.0); PLATELET COUNT AUTOMATED 311 10*3/uL (130-400); RED CELL DISTRI WIDTH 14.5 % (0-14.5)
[2025-03-29 15:01] LABS: BUN 10 mg/dl (9-23); FREE T4 1.14 ng/dl (0.89-1.76); LDL CHOLESTEROL 144 mg/dL (9-159); SGPT/ALT 13 U/L (5-49)
[2025-03-29 15:11] LABS: VITAMIN D, 25-HYDROXY 35.0 ng/mL (30-100)
== END | disposition home or self-care (01) ==
LOC: LAB 00:31 → US 13:00 → LAB 13:00
PROVIDERS: ATTEND Internal Medicine
DX: I65.23 Occlusion and stenosis of bilateral carotid arteries (principal); R42 Dizziness and giddiness; I10 Essential (primary) hypertension; Z98.890 Other specified postprocedural states; E55.9 Vitamin D deficiency, unspecified

== ENCOUNTER → 2025-04-20 | Outpatient (CLI) | payer OTHER | END | disposition home or self-care (01) | LOC: MAMMO 11:04 | PROVIDERS: ATTEND Internal Medicine | DX: Z12.31 Encounter for screening mammogram for malignant neoplasm of breast (principal); R92.313 Mammographic fatty tissue density, bilateral breasts ==